=== PATIENT | female | born 1950 | race African-American/Black ===

== ENCOUNTER → 2016-05-12 | Day surgery (SDC) | payer MEDICARE ==
[~2016-05-12] MED LIST: ALBU0.08 NEB; ALBU0.086 NEB; AMBI10TA PO; ASPI81 PO; ASPI81TA81 PO; BENA25TA3 PO; BUPIVACAINE/EPINEPHRINE 0.5% 50 ML VIAL ONE; CARI200T PO; FENT50DI T-DERMAL; GLYB1TAB50 PO; GLYB2.5T3 PO; HYDR-3288 PO; LACTATED RINGER'S 1000 ML INJ 1,000 ML ONE; LISI10TA3 PO; MIDAZOLAM HCL 2 MG/2 ML VIAL ONE; MORPHINE SULFATE 4 MG/ML INJ ONE; N7030SS SQ; NOVO7030P2 SQ; ONDANSETRON HCL 4 MG/2 ML VIAL IV PUSH ONE; PRED20 PO; PRIN10TA PO; PROPOFOL 200 MG/20 ML AMP IV ONE; ROBA500T PO; ZITH250T PO; ceFAZolin INJ 1,000 MG VIAL ONE
--- NOTE | 2016-05-16 21:52 | MP ---
cc: LEYDA DIAZ DATE OF SURGERY 05/12/2016 PREOPERATIVE DIAGNOSIS Right knee medial meniscus tear. POSTOPERATIVE DIAGNOSES Right knee medial meniscus tear. PROCEDURE Right knee arthroscopic partial meniscectomy. SURGEON Dr. Miguel Diaz ANESTHESIA General. REVIEW OF SYSTEMS Less than 10 mL. TOURNIQUET TIME Zero minutes. COMPLICATIONS None DESCRIPTION The patient is a 65-year female with history of right knee pain. She has had persistent symptoms in spite of conservative treatment. MRI as well as clinical exam confirmed the above-named findings. The patient was counseled as to risks, benefits and alternatives to the above-named proposed surgical procedure. She did wish to proceed with surgery. PROCEDURE IN DETAIL A written consent obtained. The patient identified by name, taken to the operating room, placed supine on operating room table. General anesthesia was administered as well as 1 gram of IV Ancef. Right thigh carefully placed in well-padded leg majano. Right lower extremity prepped and draped using isopropyl alcohol, Hibiclens solution and DuraPrep solution. A standard medial and lateral parapatellar arthroscopic portal was established. The patellofemoral joint revealed minimal chondromalacia. The medial compartment revealed a large complex unstable tear posterior horn of the medial meniscus. 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 An arthroscopic biter followed by an arthroscopic shaver was introduced into the medial compartment to perform partial medial meniscectomy. The meniscal rim was probed and noted to be stable for meniscectomy. A gentle chondroplasty along the unstable cartilage fragments and medial femoral condyle was performed. The intercondylar notch of the anterior posterior cruciate ligaments to be intact. Lateral compartment was relatively free of meniscal pathology and chondromalacia. At the conclusion of the surgical procedure, 30 mL of 0.5% Marcaine with epinephrine was injected into the knee joint. The arthroscopic portals were closed with 3-0 Prolene suture. Sterile dressing applied. The patient tolerated procedure welll, no intraoperative complications noted. MD BINTA Lassiter/ /12:05 PM /8:32 PM
== END | disposition home or self-care (01) ==
LOC: ESDC 10:37
PROVIDERS: ATTEND Orthopaedic Surgery Sports Medicine
DX: S83.231A Complex tear of medial meniscus, current injury, right knee, initial encounter (principal); E11.9 Type 2 diabetes mellitus without complications; Z79.4 Long term (current) use of insulin
CPT/HCPCS: 01400; 29881; 82948; J0690; J2250; J2270; J2405; J3010; J7120

== ENCOUNTER 2016-07-10 19:36 | Emergency (ER) | payer MEDICARE ==
[~2016-07-10 19:36] MED LIST changes: -ALBU0.08 NEB; -ASPI81TA81 PO; -BENA25TA3 PO; -BUPIVACAINE/EPINEPHRINE 0.5% 50 ML VIAL ONE; -GLYB2.5T3 PO; -HYDR-3288 PO; -LACTATED RINGER'S 1000 ML INJ 1,000 ML ONE; -LISI10TA3 PO; -MIDAZOLAM HCL 2 MG/2 ML VIAL ONE; -MORPHINE SULFATE 4 MG/ML INJ ONE; -N7030SS SQ; -ONDANSETRON HCL 4 MG/2 ML VIAL IV PUSH ONE; -PROPOFOL 200 MG/20 ML AMP IV ONE; -ROBA500T PO; -ceFAZolin INJ 1,000 MG VIAL ONE
[2016-07-10 19:38] VITALS: BP 164/86; PULSE 81; RESP 16; TEMP 98.2; O2SAT 100
--- NOTE | 2016-07-10 19:48 | PD ---
Physical Exam Time Seen by Provider: 19:45 Narrative 65yo F c/o R hip pain and down her leg after a chair she sat down in collapsed on Sunday. Has been ambulatory on the effected extremity w/ a cane for support. Denies hitting head or LOC. Denies anticoagulants. Ambulatory in triage. VS reviewed. Patient seen in triage. Awaiting bed placement. Data Data Last Documented VS Vital Signs Date Time Temp Pulse Resp B/P Pulse Ox O2 Delivery O2 Flow Rate FiO2 07/10/16 19:38 98.2 81 16 164/86 100 Room Air MDM Supervised Visit with YOKO: Ailze Baires July 10, 2016 19:48
--- NOTE | 2016-07-10 21:29 | PD ---
HPI Chief Complaint: Fall Time Seen by Provider: 21:13 Travel History International Travel<30 days: No Contact w/Intl Traveler<30days: No Traveled to known affect area: No History of Present Illness HPI 65-year-old female presents to the emergency department for evaluation of back pain that radiates down the right leg that started on Sunday after she was sitting in a chair to collapse. She denies hitting her head or any LOC. She denies neck pain. No chest pain or abdominal pain. No vomiting. She has been ambulatory with a cane. She reports right knee surgery 2 months ago and has Lortab at home. She has not taken any today. She reports history of DM, neuropathy. PFSH Past Medical History Asthma: No Autoimmune Disease: No Cancer: No COPD: No Diabetes: Yes Diminished Hearing: No Hepatitis: No Hiatal Hernia: No Hypertension: Yes Musculoskeletal: Yes (CHRONIC BACK P) Thyroid Disease: No Menopausal: Yes : 4 Para: 1 Miscarriage: 3 Past Surgical History Abdominal Surgery: Yes (DOMITILA.,) Cholecystectomy: Yes Gynecologic Surgery: Yes (TUBAL LIG.) Other Surgery: Yes (LEFT HAND SURGERY 2003/RIGHT CARPAL TUNNEL 2006) Social History Alcohol Use: Yes (OCCAS) Tobacco Use: No Substance Use: No Allergies-Medications (Allergen,Severity, Reaction): Coded Allergies: Celebrex (Verified Allergy, Unknown, rash, 07/10/16) Simvastatin (Verified Allergy, Unknown, hair loss, 07/10/16) Reported Meds & Prescriptions Reported Meds & Active Scripts Active Robaxin (Methocarbamol) 500 Mg Tab 500 Mg PO TID PRN Reported Albuterol Neb (Albuterol Sulfate) 2.5 Mg/3 Ml Neb 2.5 Mg NEB Q4HR NEB PRN Aspir-81 (Aspirin) 81 Mg Tabdr 81 Mg PO DAILY Glyburide 2.5 Mg Tab 2.5 Mg PO BID Take with meals at the same time each day Novolin 70/30 Inj (Insulin Human Isoph/Insulin Regular) 1,000 Units/10 Ml Inj 10 Units SQ BID Lisinopril 10 Mg Tab 10 Mg PO DAILY PRN Ambien (Zolpidem Tartrate) 10 Mg Tab 10 Mg PO HS Benadryl Allergy (Diphenhydramine HCl) 25 Mg Tab 25 Mg PO BID PRN Douglas (Hydrocodone-Acetaminophen) 7.5-325 mg Tab 1 Tab PO DAILY PRN Review of Systems Except as stated in HPI: all other systems reviewed are Neg Physical Exam Narrative GENERAL: Well-nourished, well-developed female patient, ambulatory with a cane. Afebrile. SKIN: Focused skin assessment warm/dry. HEAD: Normocephalic. Atraumatic. ENT: Mucosa pink and moist. No erythema or exudates. No uvular edema. No uvular , palatal, or tonsillar deviation. Airway patent. Nasal turbinates appear normal without nasal blood, purulent drainage or septal hematoma. Bilateral tympanic membranes are clear without erythema or perforation. EYES: No scleral icterus. No injection or drainage. NECK: Supple, trachea midline. No JVD or lymphadenopathy. CARDIOVASCULAR: Regular rate and rhythm without murmurs, gallops, or rubs. RESPIRATORY: Breath sounds equal bilaterally. No accessory muscle use. Lung sounds are clear to auscultation. GASTROINTESTINAL: Abdomen soft, non-tender, nondistended. MUSCULOSKELETAL: No cyanosis, or edema. Patient has tenderness over plantar foot. BACK: No obvious deformity. No CVA tenderness. No cervical spine tenderness. Patient has tenderness over midline lumbar spine and right lumbar paraspinal musculature. Data Data Last Documented VS Vital Signs Date Time Temp Pulse Resp B/P Pulse Ox O2 Delivery O2 Flow Rate FiO2 07/10/16 22:18 Room Air 07/10/16 19:38 98.2 81 16 164/86 100 Orders Spine, Lumbar - Ltd (Ap & Lat) (07/10/16 ) Foot, Complete ([id number]) (07/10/16 ) Hip, Uni(Ap&Lat) W Ap Pelvis (07/10/16 ) Knee, Complete (4vws) (07/10/16 ) MDM Medical Decision Making Medical Screen Exam Complete: Yes Emergency Medical Condition: Yes Medical Record Reviewed: Yes Interpretation(s) Last Impressions Lumbar Spine X-Ray 07/10/16 0000 Signed Impressions: Service Date/Time: Sunday, July 10, 2016 21:41 - CONCLUSION: Degenerative changes. No acute bony injury Pj Raymond MD Knee X-Ray 07/10/16 0000 Signed Impressions: Service Date/Time: Sunday, July 10, 2016 21:46 - CONCLUSION: Degenerative changes and joint effusion. No definite acute bony injury. Pj Raymond MD Hip and Pelvis X-Ray 07/10/16 0000 Signed Impressions: Service Date/Time: Sunday, July 10, 2016 21:41 - CONCLUSION: No acute bony injury Pj Raymond MD Foot X-Ray 07/10/16 0000 Signed Impressions: Service Date/Time: Sunday, July 10, 2016 21:36 - CONCLUSION: No acute bony injury Pj Raymond MD Differential Diagnosis sciatica vs. muscle strain vs. fracture Narrative Course 65 year old female presents to the emergency department for evaluation after the chair she was sitting in collapsed. X-ray of the lumbar spine, right hip with pelvis, right knee, and right foot are ordered and pending. X-ray of the lumbar spine shows degenerative changes without acute bony injury. X-ray of the right hip with pelvis shows no acute bony injury. X-ray of the right foot shows no acute bony injury. X-ray of the right knee shows no acute bony injury. Patient will be discharge prescription for Robaxin. She is encouraged to follow -up with her primary care physician. Patient verbalizes agreement and understanding. Diagnosis Primary Impression: Sciatica Qualified Code: M54.31 - Sciatica of right side Additional Impression: Knee contusion Qualified Code: S80.01XA - Contusion of right knee, initial encounter Referrals: Primary Care Physician call for appointment Patient Instructions: Contusion in Adults (ED), General Instructions, Sciatica (ED) Additional Instructions: Continue prescribed Lortab as directed as needed for pain. Take Robaxin as directed as needed. Caution as this can make you drowsy. Follow-up with your primary care physician. Return to the emergency department for any acute worsening of symptoms. Med/Other Pt SpecificInfo: Prescription(s) given Scripts Methocarbamol (Robaxin)500 Mg [id number] Mg PO TID PRN (MUSCLE SPASM) #21 TAB Ref 0 Prov:Cheyenne Trujillo 07/10/16 Disposition: 01 DISCHARGE HOME Condition: Stable Cheyenne Trujillo July 10, 2016 21:29
[2016-07-10] MEDS ORDERED: ALBU0.08 NEB (21:30)
[2016-07-10] MEDS ORDERED: LISI10TA3 PO (21:30)
[2016-07-10] MEDS ORDERED: BENA25TA3 PO (21:30)
[2016-07-10] MEDS ORDERED: N7030SS SQ (21:30)
[2016-07-10] MEDS ORDERED: HYDR-3288 PO (21:30)
[2016-07-10] MEDS ORDERED: AMBI10TA PO (21:30)
[2016-07-10] MEDS ORDERED: ASPI81TA81 PO (21:30)
[2016-07-10] MEDS ORDERED: GLYB2.5T3 PO (21:30)
--- NOTE | 2016-07-10 21:43 | RADRPT ---
EXAM DATE/TIME: 07/10/2016 21:36 [facility] COMPARISON: No previous studies available for comparison. INDICATIONS : Right foot pain after falling out of a chair today. MEDICAL HISTORY : None. SURGICAL HISTORY : None. ENCOUNTER: Initial ACUITY: 1 day PAIN SCORE: 7/10 LOCATION: Right foot FINDINGS: There is no evidence of fracture, dislocation or bony destruction. There are mild arthritic changes p resent. A small plantar heel spur is noted. CONCLUSION: No acute bony injury Pj Raymond MD on July 10, 2016 at 21:39 Board Certified Radiologist. This report was verified electronically.
--- NOTE | 2016-07-10 21:56 | RADRPT ---
EXAM DATE/TIME: 07/10/2016 21:41 [facility] COMPARISON: No previous studies available for comparison. INDICATIONS : Right hip pain after falling out of a chair today. MEDICAL HISTORY : None. SURGICAL HISTORY : None. ENCOUNTER: Initial ACUITY: 1 day PAIN SCORE: 7/10 LOCATION: Right hip FINDINGS: The hips are symmetric and intact without evidence of fracture or dislocation. There is mild degenera tive change seen in the hips and visualized lower lumbar spine. Several pelvic phleboliths are presen t. No displaced pelvic fracture. CONCLUSION: No acute bony injury Pj Raymond MD on July 10, 2016 at 21:53 Board Certified Radiologist. This report was verified electronically.
--- NOTE | 2016-07-10 22:18 | RADRPT ---
EXAM DATE/TIME: 07/10/2016 21:41 [facility] COMPARISON: No previous studies available for comparison. INDICATIONS : Lower back pain after falling out of a chair today. MEDICAL HISTORY : None. SURGICAL HISTORY : None. ENCOUNTER: Initial ACUITY: 1 day PAIN SCORE: 7/10 LOCATION: Bilateral lower back. FINDINGS: There is slight anterolisthesis of L4 relative to L5. There are degenerative changes present without evidence of fracture or destructive change. Disc space narrowing most notably at L4-5 and L5-S1 level s. Endplate osteophytes present throughout. CONCLUSION: Degenerative changes. No acute bony injury Pj Raymond MD on July 10, 2016 at 22:15 Board Certified Radiologist. This report was verified electronically.
--- NOTE | 2016-07-10 22:19 | RADRPT ---
EXAM DATE/TIME: 07/10/2016 21:46 [facility] COMPARISON: No previous studies available for comparison. INDICATIONS : Right knee pain after falling out of a chair today. MEDICAL HISTORY : None. SURGICAL HISTORY : Right knee cartilage surgery. ENCOUNTER: Initial ACUITY: 1 day PAIN SCORE: 7/10 LOCATION: Right knee FINDINGS: There is a suprapatellar effusion. There are arthritic changes present with joint space narrowing mos t significantly in the medial compartment and tricompartmental osteophytes. There is no definite evid ence of fracture or destructive change. CONCLUSION: Degenerative changes and joint effusion. No definite acute bony injury. Pj Raymond MD on July 10, 2016 at 22:16 Board Certified Radiologist. This report was verified electronically.
[2016-07-10] MEDS ORDERED: ROBA500T PO (23:11)
== END 2016-07-10 23:26 | disposition home or self-care (01) ==
LOC: NEPD 19:36
DX: M54.31 Sciatica, right side (principal); S80.01XA Contusion of right knee, initial encounter; W07.XXXA Fall from chair, initial encounter
CPT/HCPCS: 72100; 73502; 73564; 73630; 99283